=== PATIENT | female | born 1995 | race Hispanic/Latino ===

== ENCOUNTER 2022-07-07 15:30 | Day surgery (SDC) | payer OTHER ==
[2022-07-07] MEDS ORDERED: Lactated Ringer's 1,000 ML IV SCH (17:00)
[2022-07-07 18:14] LABS: ALT (SGPT) 13 U/L (8-55); AST (SGOT) 15 U/L (5-34); Albumin 3.2 g/dL (3.5-5.0); Alkaline Phosphatase 104 U/L (40-110); Anion Gap 15 mmol/L (10-20); BUN (Urea Nitrogen) 7 mg/dL (7.0-18.7); Bilirubin, Total 0.4 mg/dL (0.2-1.2); Calc. Creatinine Clearance 0 mL/min (70-130); Calcium 8.8 mg/dL (7.8-10.44); Carbon Dioxide 20 mmol/L (22-29); Chloride 107 mmol/L (98-107); Estimated GFR 130; Globulin 3.1 g/dL (2.4-3.5); Glucose 71 mg/dL (70-105); Protein, Total 6.3 g/dL (6.0-8.3); Sodium 138 mmol/L (136-145)
[2022-07-07 18:15] LABS: Bilirubin Neg (Negative); Blood, Urine Negative (Negative); CAUTI Indications for Culture Pregnancy; Clarity Slightly Cloudy (Clear); Glucose, Urine (Dipstick) Normal (Negative); Ketone, Urine 150 mg/dL (Negative); Leukocyte 500 (Negative); Nitrite Negative (Negative); Protein, Urine (Dipstick) 30 mg/dl (Neg-Trace); pH, Urine 6.5 (5.0-9.0)
[2022-07-07 18:20] LABS: Urine Culture Reflex Yes Yes
[2022-07-07 18:22] LABS: Bacteria/HPF 1+ HPF (None Seen); RBC/HPF 0-3 HPF (0-3)
[2022-07-07 18:23] LABS: #Monocytes 0.5 10x3/uL (0.0-1.1); #Neutrophils 9.4 10x3/uL (1.5-8.4); %Basophils 0.2 % (0.0-2.0); %Lymphocytes 14.1 % (18.0-47.0); %Monocytes 4.1 % (0.0-10.0); %Neutrophils 80.9 % (40.0-75.0); Hemoglobin 10.7 g/dL (12.0-15.5); Mean Corpuscular HGB CONC 33.1 g/dL (32.0-36.0); Mean Corpuscular Volume 90.5 fl (81.6-98.3); Mean Platelet Volume 10.7 fl (7.4-10.4); Platelet Count 236 10x3/uL (150-450); RBC Distribution Width 14.7 % (11.5-14.5); Red Blood Cell (RBC) Count 3.57 10x6/uL (3.90-5.03); White Blood Cell (WBC) Count 11.6 10x3/uL (3.5-10.5)
[2022-07-07] MEDS ORDERED: cefTRIAXone\\ROCEPHIN 1 GM in Sodium Chloride 0.9% 100 ML IVPB SCH (18:30)
== END 2022-07-07 20:30 | disposition home or self-care (01) ==
LOC: CSHLD/OP 15:30
PROVIDERS: ATTEND Family Medicine
DX: O47.03 False labor before 37 completed weeks of gestation, third trimester (principal); O30.003 Twin pregnancy, unspecified number of placenta and unspecified number of amniotic sacs, third trimester; O24.410 Gestational diabetes mellitus in pregnancy, diet controlled; Z3A.29 29 weeks gestation of pregnancy
CPT/HCPCS: 36415; 76819; 80053; 81001; 85025; 87086; J0696; J3490

== ENCOUNTER 2022-08-28 14:54 | Inpatient (IN) | payer MEDICAID, OTHER, SELFPAY ==
[2022-08-28] MEDS: Lactated Ringer's 1,000 ML IV SCH ×2 (15:35→16:37)
[2022-08-28] MEDS ORDERED: Carboprost 250 MCG/ML AMP IM PRN (15:48)
[2022-08-28] MEDS ORDERED: Misoprostol 200 MCG TAB PR PRN (15:48)
[2022-08-28] MEDS ORDERED: Tranexamic Acid 1,000 MG in Sodium Chloride 0.9% 250 ML 250 ML IVPB PRN (15:48)
[2022-08-28] MEDS ORDERED: Azithromycin 500 MG in Sodium Chloride 0.9% 250 ML 250 ML IVPB SCH (15:48)
[2022-08-28] MEDS ORDERED: Ondansetron PF 4 MG/2 ML Vial IVP PRN ×3 (15:48→21:42)
[2022-08-28] MEDS ORDERED: Bicitra 30 ML UDCUP PO PRN (15:48)
[2022-08-28] MEDS ORDERED: Diphenoxylate HCl/Atropine Tablet PO PRN (15:48)
[2022-08-28] MEDS ORDERED: NS w/ Oxytocin 30 units 500 ML IV SCH ×2 (15:48→22:00)
[2022-08-28] MEDS ORDERED: Famotidine/PF 20 mg/2ml Vial SLOW IVP PRN (15:48)
[2022-08-28] MEDS ORDERED: Promethazine HCl 25 MG/ML VIAL IM PRN ×3 (15:48→21:42)
[2022-08-28] MEDS ORDERED: Methylergonovine 0.2 MG/ML VIAL IM PRN (15:48)
[2022-08-28] MEDS ORDERED: hydrALAZINE 20 MG/ML VIAL SLOW IVP PRN ×2 (15:48→21:42)
[2022-08-28] MEDS ORDERED: CEFAZOLIN 2 GM in Sodium Chloride 0.9% 100 ML IVPB SCH (15:48)
[2022-08-28 15:49] VITALS: BMI 39.6
[2022-08-28 16:06] LABS: Hemoglobin 12.1 g/dL (12.0-15.5); Mean Corpuscular HGB CONC 33.2 g/dL (32.0-36.0); Mean Corpuscular Hemoglobin 29.2 pg (27.0-33.0); Mean Corpuscular Volume 88.2 fl (81.6-98.3); Mean Platelet Volume 11.7 fl (7.4-10.4); Platelet Count 224 10x3/uL (150-450); RBC Distribution Width 14.5 % (11.5-14.5); Red Blood Cell (RBC) Count 4.14 10x6/uL (3.90-5.03); White Blood Cell (WBC) Count 11.5 10x3/uL (3.5-10.5)
[2022-08-28 16:28] LABS: HBSAg Index 0.12 S/CO (0-0.99); Hep B Surf Ag Non-Reactive S/CO (NonReactive)
[2022-08-28 16:30] LABS: Syphilis Antibody Nonreactive (Nonreactive); Syphilis Antibody Index 0.02 S/CO (<1.00 Non-Reactive)
[2022-08-28] MEDS ORDERED: Morphine PF 10 MG/10 ML VIAL ONE (17:19)
[2022-08-28] MEDS ORDERED: Lidocaine 1% PF 5 ML VIAL ONE (17:20)
[2022-08-28] MEDS ORDERED: Promethazine HCl 25 MG/ML VIAL ONE (17:20)
[2022-08-28] MEDS ORDERED: Phenylephrine 10 MG/ML VIAL ONE ×2 (17:20→17:25)
[2022-08-28] MEDS ORDERED: Succinylcholine 200 MG/10 ml SYRINGE FS ONE (17:21)
[2022-08-28] MEDS ORDERED: Lidocaine 1% (PF) 30 ML VIAL ONE (17:21)
[2022-08-28] MEDS ORDERED: Oxytocin 10 UNITS/ML VIAL ONE (17:21)
[2022-08-28 17:29] LABS: SARS-CoV-2 NAA Rapid Test Not Detected (NotDetected)
[2022-08-28] MEDS ORDERED: PROPOFOL 0 ML ONE (17:45)
[2022-08-28] MEDS ORDERED: Phytonadione Neonatal 1 MG/0.5 ML AMP ONE (18:14)
[2022-08-28] MEDS ORDERED: Erythromycin Base 0.5% Oint 1 GM TUBE ONE (18:14)
[2022-08-28] MEDS ORDERED: Ketorolac Tromethamine 30 MG/ML VIAL IVP PRN (18:32)
[2022-08-28] MEDS ORDERED: Moisturizing Cream (Eucerin) 113 GM JAR TOP PRN (18:32)
[2022-08-28] MEDS ORDERED: Promethazine HCl 25 MG SUPP PR PRN (18:32)
[2022-08-28] MEDS ORDERED: Fentanyl 100 MCG/2 ML VIAL SLOW IVP PRN (18:32)
[2022-08-28] MEDS ORDERED: Meperidine HCl/PF 25 MG/ML VIAL SLOW IVP PRN (18:32)
[2022-08-28] MEDS ORDERED: diphenhydrAMINE 50 MG/ML VIAL IVP PRN (18:32)
[2022-08-28] MEDS ORDERED: Naloxone HCl 0.4 mg/ml Vial IVP PRN ×2 (18:32)
[2022-08-28] MEDS ORDERED: Naloxone HCl 0.4 mg/ml Vial IV PRN (18:32)
[2022-08-28] MEDS ORDERED: Communication Order-Pharmacy FS SCH (18:45)
[2022-08-28] MEDS: Fentanyl 100 MCG/2 ML VIAL ONE ×2 (19:33→20:13)
[2022-08-28] MEDS ORDERED: Fentanyl 100 MCG/2 ML VIAL ONE (20:06)
[2022-08-28] MEDS ORDERED: Boostrix 0.5 ML (Tdap) VIAL (>/=7 yrs of age) IM ONE (21:42)
[2022-08-28] MEDS ORDERED: diphenhydrAMINE 25 MG CAP PO PRN (21:42)
[2022-08-28] MEDS ORDERED: Lanolin Ointment 7 GM TUBE TOP PRN (21:42)
[2022-08-28] MEDS ORDERED: Simethicone Chewable 80 MG TAB PO PRN (21:42)
[2022-08-28] MEDS ORDERED: Bisacodyl 10 MG SUPP PR PRN (21:42)
[2022-08-28] MEDS ORDERED: Ferrous Sulfate 325 MG TAB PO SCH (22:00)
[2022-08-28] MEDS ORDERED: Docusate 100 MG CAP PO SCH (22:00)
[2022-08-28] MEDS: Ketorolac Tromethamine 30 MG/ML VIAL IVP SCH (22:17)
[2022-08-29 04:54] LABS: Hemoglobin 10.8 g/dL (12.0-15.5); Mean Corpuscular HGB CONC 32.7 g/dL (32.0-36.0); Mean Corpuscular Hemoglobin 29.1 pg (27.0-33.0); Mean Corpuscular Volume 88.9 fl (81.6-98.3); Mean Platelet Volume 11.9 fl (7.4-10.4); Platelet Count 175 10x3/uL (150-450); RBC Distribution Width 14.4 % (11.5-14.5); Red Blood Cell (RBC) Count 3.71 10x6/uL (3.90-5.03); White Blood Cell (WBC) Count 12.5 10x3/uL (3.5-10.5)
[2022-08-29] MEDS: Ketorolac Tromethamine 30 MG/ML VIAL IVP SCH ×3 (05:55→17:55)
[2022-08-29] MEDS ORDERED: Meperidine HCl/PF 25 MG/ML VIAL IM PRN (06:45)
[2022-08-29] MEDS: Prenatal Vitamin 1 TAB PO SCH (09:01)
[2022-08-29] MEDS: Docusate 100 MG CAP PO SCH ×2 (09:01→23:35)
[2022-08-29] MEDS: HYDROcodone/Acetaminophen 5/325 mg Tablet PO PRN ×2 (09:06→16:17)
[2022-08-29] MEDS: Ferrous Sulfate 325 MG TAB PO SCH ×2 (09:08→23:30)
[2022-08-29] MEDS: Ibuprofen 800 MG TAB PO SCH (23:36)
[2022-08-30] MEDS: HYDROcodone/Acetaminophen 5/325 mg Tablet PO PRN ×3 (02:03→16:17)
[2022-08-30] MEDS: Ferrous Sulfate 325 MG TAB PO SCH (07:32)
[2022-08-30] MEDS: Prenatal Vitamin 1 TAB PO SCH (08:47)
[2022-08-30] MEDS: Ibuprofen 800 MG TAB PO SCH ×2 (08:47→16:12)
[2022-08-30] MEDS: Docusate 100 MG CAP PO SCH (08:47)
[2022-08-31] MEDS: Ibuprofen 800 MG TAB PO SCH ×2 (00:11→08:05)
[2022-08-31] MEDS: Docusate 100 MG CAP PO SCH ×2 (00:11→08:05)
[2022-08-31] MEDS: HYDROcodone/Acetaminophen 5/325 mg Tablet PO PRN ×2 (00:14→08:05)
[2022-08-31] MEDS: Ferrous Sulfate 325 MG TAB PO SCH ×2 (00:21→07:32)
[2022-08-31 07:54] VITALS: BP 111/59; TEMP 98.1
[2022-08-31] MEDS: Prenatal Vitamin 1 TAB PO SCH (08:05)
== END 2022-08-31 12:10 | disposition home or self-care (01) | DRG 788 ==
LOC: CSHLD 14:54 → CSHPP 21:12
PROVIDERS: ADMIT Family Medicine; ATTEND Family Medicine
PROC: 10D00Z1 Extraction of Products of Conception, Low, Open Approach (ICD-10-PCS; principal; 2022-08-28)
DX: O30.043 Twin pregnancy, dichorionic/diamniotic, third trimester (principal); Z3A.37 37 weeks gestation of pregnancy; Z37.2 Twins, both liveborn; O24.420 Gestational diabetes mellitus in childbirth, diet controlled; Z20.822 Contact with and (suspected) exposure to COVID-19; O32.8XX2 Maternal care for other malpresentation of fetus, fetus 2
CPT/HCPCS: 36415; 36416; 51702; 85027; 86780; 86850; 86900; 86901; 87340; 88307; J1885; J2001; J2210; J2274; J2370; J2405; J2550; J2590; J2704; J3010; J7120; S0028; U0002